=== PATIENT | female | born 1985 | race Hispanic/Latino ===

== ENCOUNTER 2018-02-17 06:59 | Emergency (ER) | payer SELFPAY ==
[~2018-02-17] VITALS: Ht 139.7 cm; Wt 60.0 kg
[~2018-02-17 06:59] MED LIST: FIORICET PO; NO CURRENT MEDS; ULTRAM50 M1 PO
[2018-02-17] MEDS ORDERED: AMOXICILLIN500 MG PO (07:33)
[2018-02-17 07:59] LABS: INFLUENZA A NONE DETECTED (NONE DETECT); INFLUENZA B NONE DETECTED (NONE DETECT)
[2018-02-17 08:18] VITALS: BP 132/77
== END 2018-02-17 08:27 | disposition home or self-care (01) | DRG 153 ==
LOC: ED 06:59
PROVIDERS: Emergency Medicine
DX: J02.9 Acute pharyngitis, unspecified (principal)

== ENCOUNTER 2018-10-14 16:03 | Emergency (ER) | payer OTHER ==
[~2018-10-14] VITALS: Ht 144.8 cm; Wt 56.8 kg
[~2018-10-14 16:03] MED LIST changes: +AMOXICILLIN500 MG PO
[2018-10-14 17:45] VITALS: BP 129/74
== END 2018-10-14 17:45 | disposition home or self-care (01) | DRG 552 ==
LOC: ED 16:03
DX: M54.2 Cervicalgia (principal); M25.512 Pain in left shoulder; V49.49XA Driver injured in collision with other motor vehicles in traffic accident, initial encounter; Y92.414 Local residential or business street as the place of occurrence of the external cause